=== PATIENT | male | born 1950 | race Caucasian/White ===

== ENCOUNTER → 2020-12-11 | Outpatient (CLI) | payer MEDICARE ==
[~2020-12-11] MED LIST: IOHEXOL 350 MG/ML 100 ML VIAL. IV ONE
--- NOTE | 2020-12-11 16:16 | RAD ---
CT angiography of the abdomen and pelvis 12/11/2020 INDICATION: Peripheral vascular disease. COMPARISON STUDY: None available. TECHNIQUE: Multidetector CT imaging of the abdomen pelvis was performed before and after the administ ration of IV contrast FINDINGS: Limited visualization of the lung bases demonstrates no acute abnormality. No elevation of the left h emidiaphragm is noted. Visualized thoracic aorta is unremarkable in course and contour. There is diffuse atherosclerotic vas cular disease involving the abdominal aorta. No aneurysm or dissection is seen. There is a 50% stenosis of the right renal artery. 20% narrowing of the left renal artery. Celiac art geoff is patent. There is 50% narrowing of the proximal SMA. The inferior most abdominal aorta is nearl y circumferentially calcified. The visualized inferior mesenteric artery appears be patent There is chronic total occlusion of the left common iliac artery just beyond its origin. There is rec onstitution via pelvic collaterals. There is high-grade stenosis left internal iliac artery. The left external iliac artery is small in caliber and calcified but remains patent. Common femoral artery on the left is partially calcified and mildly narrowed. There is moderate stenosis at the ostium of the right common iliac artery secondary to intraluminal c alcified plaque. Artery is narrowed by approximately 50%. The right internal iliac artery is mildly s tenotic at its origin, and pelvis calcified and stenotic distally. The right external iliac artery is calcified and small but patent. Right common femoral artery is calcified but patent. Solid viscera of the abdomen demonstrate no acute abnormality. Motion somewhat limits evaluation. No evidence of bowel obstruction is seen. The appendix is unremarkable. The gallbladder wall is mildly t hickened. Prostate is normal in size. No free fluid or free air seen in the abdomen or pelvis. No acu te osseous changes are identified. IMPRESSION: 1.. 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 50% narrowing, right common iliac artery at t he ostium. Consider conventional angiography/intervention as clinically indicated. 2. 50% stenosis, right renal artery. 50% stenosis, SMA. 3. Bilateral internal iliac artery stenosis also noted. 4. Nonspecific bladder wall thickening or air correlate with clinical evidence of cystitis CT DOSING PQRS STATEMENT: One or more of the following individualized dose reduction techniques were utilized for this examinat ion: 1. Automated exposure control 2. Adjustment of the mA and/or kV according to patient size 3. Use of iterative reconstruction technique Electronically signed by: Del Barry MD (12/11/2020 4:13 PM) [id number]
== END ==
LOC: CT 13:47
PROVIDERS: ATTEND Family Medicine
DX: I74.5 Embolism and thrombosis of iliac artery (principal)
CPT/HCPCS: 74174

== ENCOUNTER 2020-12-21 08:37 | Outpatient (CLI) | payer MEDICARE ==
[~2020-12-21] VITALS: Ht 185.4 cm; Wt 89.5 kg
[2020-12-21] VITALS (14 sets, daily range): BP systolic 120–161; BP diastolic 60–76
[2020-12-21] MEDS ORDERED: NAPR220C4 PO (09:09)
[2020-12-21] MEDS ORDERED: MV-M1TAB7 PO (09:09)
[2020-12-21] MEDS ORDERED: FLUT1BLS3 IH (09:09)
[2020-12-21] MEDS ORDERED: VENTOLIN HFA18 GM INH (09:09)
[2020-12-21] MEDS ORDERED: OLME20TA17 PO (09:09)
[2020-12-21] MEDS ORDERED: VITA1TAB19 PO (09:09)
[2020-12-21 09:36] LABS: BASO # 0.1 x10^3/uL (0.0-0.2); BASO % 1 % (0-3); EOS # 0.1 x10^3/uL (0.0-0.7); EOS % 2 % (0-3); HEMATOCRIT 50.3 % (39.0-53.0); HEMOGLOBIN 17.4 g/dL (13.0-17.5); LYMPH # 1.6 x10^3/uL (1.0-4.8); LYMPH % 23 % (24-48); MEAN CORPUSCULAR HEMOGLOBIN 37 pg (25-35); MEAN CORPUSCULAR HGB CONC 35 g/dL (31-37); MEAN CORPUSCULAR VOLUME 106 fL (79-100); MONO % 13 % (0-9); NEUT # 4.5 x10^3/uL (1.8-7.7); NEUT % 61 % (31-73); PLATELET COUNT 171 x10^3/uL (140-400); RED BLOOD COUNT 4.74 x10^6/uL (4.30-5.70); RED CELL DISTRIBUTION WIDTH 13.7 % (11.5-14.5); WHITE BLOOD COUNT 7.3 x10^3/uL (4.0-11.0)
[2020-12-21] MEDS ORDERED: LIDOCAINE WITH 8.4% SOD BICARB 3 ML DISP.SYRIN. ONE ×2 (09:44→10:31)
[2020-12-21] MEDS ORDERED: IODIXANOL 320 MG/ML 100 ML VIAL. ONE (09:44)
[2020-12-21 09:45] LABS: PROTHROMBIN TIME PATIENT 12.4 SEC (11.7-14.0)
[2020-12-21 09:59] LABS: CALCIUM 8.6 mg/dL (8.5-10.1); GFR 74.1
[2020-12-21] MEDS ORDERED: MIDAZOLAM HCL/PF 2 MG/2 ML VIAL. ONE ×2 (10:18→10:54)
[2020-12-21] MEDS ORDERED: fentaNYL PF VIAL 100 MCG/2 ML VIAL ONE ×3 (10:19→12:59)
[2020-12-21] MEDS: fentaNYL PF VIAL 100 MCG/2 ML VIAL IV ONE (10:29)
[2020-12-21] MEDS ORDERED: HEPARIN for IV BOLUS 10,000 UNIT/10 ML VIAL. ONE (10:33)
[2020-12-21] MEDS ORDERED: MIDAZOLAM HCL/PF 2 MG/2 ML VIAL. IV ONE (10:45)
[2020-12-21] MEDS ORDERED: LIDOCAINE WITH 8.4% SOD BICARB 3 ML DISP.SYRIN. IJ ONE (10:45)
[2020-12-21] MEDS ORDERED: HEPARIN for IV BOLUS 10,000 UNIT/10 ML VIAL. IVP ONE (10:45)
[2020-12-21] MEDS ORDERED: IODIXANOL 320 MG/ML 100 ML VIAL. IART ONE (10:45)
[2020-12-21] MEDS ORDERED: IODIXANOL 320 MG/ML 50ML VIAL. ONE (12:32)
[2020-12-21] MEDS ORDERED: IODIXANOL 320 MG/ML 50ML VIAL. IART ONE (13:00)
--- NOTE | 2020-12-21 13:23 | PDOC ---
MODERATE SEDATION ASSESSMENT RISKS/ALTERNATIVES Risks/Alternatives Risks and alternatives of this type of sedation and procedure discussed with: RISK/ALTERNATIVES: Patient H & P ON CHART H & P H & P on chart and reviewed for co-morbid conditions and appropriate labs. H&P ON CHART: Yes STATUS PREG STATUS ASSESSED: Yes MEDS/ALLERGIES REVIEWED Meds/Allergies Reviewed Medications and Allergies including time and route of recently administered narcotics and sedatives. MEDS/ALLERGIES REVIEWED: Yes ASA RATING ASA RATING: II AIRWAY ASSESSMENT Airway Assessment Airway patency, oral function limitations, presence of caps, crowns, dentures, partials, and ability to extend neck assessed. AIRWAY ASSESSMENT: Yes MALLAMPATI SCORE MALLAMPATI SCORE: II PRE-SEDATION ASSESSMENT PRE-SEDATION ASSESSMENT: Yes JANENE VALENZUELA MD December 21, 2020 13:23
--- NOTE | 2020-12-21 13:25 | PDOC ---
BRIEF OPERATIVE NOTE Pre-Op Diagnosis PAD Post-Op Diagnosis same Procedure Performed Aortogram and bilateral iliac artery angioplasty/stent Surgeon Edwin CAMILO minimal Anesthesia Type: Conscious Sedation Specimens Obtained none Findings Occluded left zaheer, severe right zaheer stenosis both treated with covered stents with good result. Moderate to severe bilateral eia disease treated with angioplasty with good results. Recommend bilateral LE arterial duplex us study with ANU's in 6 weeks, with LE runoffs and intervention if indicated. Complications no immediate JANENE VALENZUELA MD December 21, 2020 13:25
[2020-12-21] MEDS ORDERED: ASPI-630 PO (13:30)
[2020-12-21] MEDS ORDERED: CLOP75TA PO (13:30)
[2020-12-21] MEDS ORDERED: CLOPIDOGREL BISULFATE 75 MG TABLET PO ONE (14:00)
--- NOTE | 2020-12-21 15:37 | RAD ---
Procedure: Abdominal aortogram, left common iliac artery angioplasty, bilateral common iliac artery s tents, bilateral external iliac artery angioplasty. Clinical Indication: Adult male with peripheral arterial disease, right lower extremity great toe isc hemia, bilateral claudication, 1 pack per day smoking history. Sedation: Conscious sedation using a combination of Versed and fentanyl was provided for 166 minutes, including continuous monitoring of the patients heart rate, rhythm, blood pressure, oxygen saturation and leve l of arousability by a trained independent observer. Antibiotics: None Fluoro Exposure: Kerma-Area Product: 467 mGycm2 Contrast: 114 cc of Visipaque 320 contrast media Sterility: All elements of maximal sterile barrier technique including the use of a cap, mask, steril e gown, sterile gloves, large sterile sheet, appropriate hand hygiene, and 2% chlorhexidine for cutan eous antisepsis (or acceptable alternative antiseptic per current guidelines) were followed for this procedure. Consent: The procedure was explained in its entirety to the patient or the patients designated repres entative by a member of the treatment team, including a discussion of the risks, benefits and commonl y accepted alternatives to the procedure, as well as the expected consequences of not performing the procedure. Discussion of the risks included, but was not limited to, those that are most frequent an d those that are rare but possibly severe or life-threatening, as well as the possibility of unforese en complications. Time Out: Immediately prior to initiation a procedural pause was conducted in the presence of the mem bers of the treatment team to verify correct patient identity, correct procedure, correct side if mike licable, correct patient position, availability of specialized equipment, review of patients allergie s, and assessment of current level of consciousness and arousability. Technique and Findings: Following informed consent, the patient was prepped and draped in usual steri le fashion. Ultrasound interrogation of the right groin revealed patency of the right common femoral artery. A hardcopy ultrasound image was recorded as a 21-gauge micropuncture needle was used to gain access to this vessel. The needle was exchanged over a wire for a 5 [place] sheath. A flush catheter w as advanced into the abdominal aorta and contrast aortography is performed. There is moderate atheros clerosis of the right renal artery proximally, with slightly greater than 50 percent stenosis. Mild a therosclerosis of left renal artery. Superior mesenteric and inferior mesenteric arteries are patent. There are several hypertrophied lumbar arteries. There is occlusion of the left common iliac artery, with high-grade irregular stenosis of the right common iliac artery. Several well-developed collater als reconstitute the left common iliac artery just above its bifurcation, via the internal iliac corrine ry. There is also long segment irregular stenosis of both external iliac arteries. The patient was gi glenn 5000 units of heparin. The 5 [place] African sheath was exchanged for 7 [place] African sheath which was advanced i n the aorta, and a reverse curve catheter and wire were used to probe the contralateral left common i liac artery occlusion. Access across the occlusion could not be achieved. Consequently, the left groi n was prepped and draped in usual sterile fashion. Ultrasound interrogation revealed patency of the l eft common femoral artery. A hardcopy ultrasound image was recorded as a 21-gauge micropuncture needl e was used to gain access to the left common femoral artery. The needle was exchanged over a wire for a 6 [place] African sheath. A catheter and wire were then used to probe the left common iliac artery occlusio n in a retrograde fashion, but once again access across the occlusion could not be achieved. The cath eter and wire were then exchanged for*device which was positioned within the subintimal space midway through the occlusion. On the right, a Glidewire was used to negotiate the subintimal space, and was successfully retrieved and pulled through the sheath on the left, facilitating through and through ac cess. The catheter was advanced over the wire on the left, and the wire was pulled through the cathet er such that the intravascular portion of the wire extended in the aorta. The catheter was then advan belkis over this portion of the wire into the aorta, and the wire was removed in its entirety. Contrast angiography was performed confirming catheter access into the abdominal aorta with persistent patency of the diseased right common iliac artery. At this point the patient was given an additional 3000 an d heparin. The catheter on the left was removed over a Camejo wire, and the left 6 [place] African sheath was e xchanged for 7 [place] African sheath. On the right a Camejo wire was advanced through the existing 7 [place] African sh eath into the abdominal aorta. A 4 mm x 60 mm angioplasty balloon was then advanced over the wire on the left and used to predilate the left common iliac artery. This balloon was then removed and kissin g 7 mm x 59 mm VBX balloon expandable covered stents were then deployed across both common iliac corrine chelsea. The balloons were inflated to maximal profile 7.5 mm. This resulted in some discomfort for the patient. Both balloons were then removed, and an 8 mm x 60 mm balloon was advanced on the right into the common iliac artery. This balloon ruptured at just greater than nominal profile, and was removed. A second 8mm by 60 mm angioplasty balloon was advanced over the wire on the left and used to angiopl asty the left common iliac artery. This resulted in some continued discomfort for the patient which p recluded inflation to burst diameter. This balloon was then removed and contrast angiography was perf ormed demonstrating excellent angiographic appearance of both common iliac arteries with christianity of brisk flow. On the right there is minimal residual stenosis. On the left, there is a tapered waist of approximately 20 percent stenosis due to extrinsic compression from the densely calcified nature of the occlusion. There is extensive left external iliac artery atherosclerosis diffusely, as well as focal hemodynamically significant atherosclerosis the right external iliac artery. A 6 mm x [address] ug coated balloon was then used to angioplasty the left external iliac artery to 3 minutes. The ballo on was repositioned and an additional 3 minute inflation was performed in the same vessel. This ballo on was then removed and a 7 mm x 60 mm plain old balloon angioplasty was performed in the left rigging and controls aircraft mechanic al iliac artery distribution. Completion angiogram demonstrated excellent angiographic appearance wit h no significant residual stenosis throughout this distribution. On the right, an 8 mm x 60 mm plain old balloon angioplasty was performed across the focal right external iliac artery stenosis. The ball oon was removed and contrast angiography was performed demonstrating good angiographic appearance wit h no significant residual stenosis. Both sheaths were then exchanged for a minx closure devices which were successfully utilized to obtain hemostasis. Complications: No immediate Impression: 1. Long segment occlusion of the left common iliac artery, with focal high-grade calcified stenosis o f the right common iliac artery. These are both significantly improved following treatment with cover ed stents. There is mild residual stenosis of the left common iliac artery due to the densely calcifi ed nature of the atherosclerosis resulting in extrinsic compression of the stents, however this is ro ughly 20 percent. 2. Long segment multifocal atherosclerosis of the left external iliac artery improved following drug coated and plain old balloon angioplasty. 3. Focal irregular stenosis of the right external iliac artery improved following plain old balloon a ngioplasty. 4. Significant stenosis the right renal artery. This will be observed in conjunction with the patient 's renal function. 5. Recommendation is for dual antiplatelet therapy with aspirin and Plavix for 6 weeks followed by tania brayin for life thereafter. The patient was counseled as to the importance of smoking cessation and is referred to Dr. Dockery for additional options in that regard. Given the dual antiplatelet therapy, th e patient was also encouraged to discontinue use of naproxen. A six-week follow-up bilateral lower ex tremity arterial duplex ultrasound study with ABIs will be obtained, and is quite possible this deter mine has clinically significant bilateral lower extremity atherosclerosis as well which may need to b e treated, with emphasis on the right lower extremity given its greater degree of symptomatology. Electronically signed by: Sukhi Pineda MD (12/21/2020 3:35 PM) [id number]
--- NOTE | 2020-12-21 17:05 | NUR ---
Patient's PIV removed. Sister is present for education/instructions. Instructions provided on groin site care, sedation. Aware of risk of bleeding. Aware of lifting restrictions. Patient verbalized understanding. Aware of new prescription and ASA. Sites clean, no bleeding. VS stable. All belongings w/ patient at time of d/c. Sister driving home.
--- NOTE | 2020-12-21 17:21 | NUR ---
Patient given written prescription for Plavix 75 mg daily. States he will fill at [facility] [address].
== END 2020-12-21 17:15 | disposition home or self-care (01) ==
LOC: INTRAD 08:37
PROVIDERS: ATTEND Family Medicine
DX: I77.1 Stricture of artery (principal); I73.9 Peripheral vascular disease, unspecified; I70.1 Atherosclerosis of renal artery; J44.9 Chronic obstructive pulmonary disease, unspecified; F17.210 Nicotine dependence, cigarettes, uncomplicated; Z20.822 Contact with and (suspected) exposure to COVID-19; Z79.82 Long term (current) use of aspirin; Z79.899 Other long term (current) drug therapy; Z98.890 Other specified postprocedural states
CPT/HCPCS: 36415; 37221; 37223; 75625; 75710; 76937; 80048; 85025; 85610; 87426; 99152; 99153; C1713; C1725; C1760; C1769; C1874; C1892; C1894; C2623; J1644; J2250; J3010; J3490; Q9967

== ENCOUNTER → 2021-02-05 | Outpatient (CLI) | payer MEDICARE ==
[2020-12-21 17:00] VITALS: BP 161/69
[~2021-02-05] MED LIST changes: +ASPI-630 PO; +CLOP75TA PO; +FLUT1BLS3 IH; -IOHEXOL 350 MG/ML 100 ML VIAL. IV ONE; +MV-M1TAB7 PO; +NAPR220C4 PO; +OLME20TA17 PO; +VENTOLIN HFA18 GM INH; +VITA1TAB19 PO
--- NOTE | 2021-02-05 16:02 | RAD ---
EXAM: Lower extremity arterial Doppler sonogram with ankle-brachial indices (ANU). HISTORY: Peripheral vascular disease. Claudication. Atherosclerosis. TECHNIQUE: Doppler sonographic evaluation of the lower extremities was performed and pressure reading s were assessed. FINDINGS: Right brachial pressure: 139 mmHg Left brachial pressure: 135 mmHg Right ankle pressure (dorsalis pedis): 86 mmHg Right ankle pressure (posterior tibial): Not detected. Right ANU: 0.61 Left ankle pressure (dorsalis pedis): 135 mmHg Left ankle pressure (posterior tibial): 142 mmHg Left ANU: 1.02 There is severe partially calcified atherosclerotic plaque throughout the bilateral lower extremity a rteries with associated small collateral vessels. There are not elevated peak systolic velocities wit hin the right common femoral, deep femoral and distal superficial femoral artery, measuring 209 cm/s, 230 cm/s, and 264 cm/s. There are also elevated peak systolic velocities within the left deep femora l and proximal, mid and distal superficial femoral artery, measuring 163 cm/s, 178 cm/s, 183 cm/s, an d 176 cm/s. The right dorsalis pedis artery is not seen. There is diminished flow within the left eula salis fetus artery and right anterior tibial artery. IMPRESSION: 1. Nonvisualization of the right posterior tibial artery at the ankle. This vessel may be occluded. T he right dorsalis pedis artery is also not seen and there is a diminished waveform within the right a nterior tibial artery. 2. Elevated peak systolic velocities within the bilateral deep femoral, right common femoral, distal right superficial femoral and proximal, mid and distal left superficial femoral artery, consistent wi th hemodynamically significant stenosis. 3. Decreased right ankle-brachial index consistent with moderate peripheral vascular disease. There i s normal left ankle-brachial index. 4. Severe partially calcified atherosclerotic plaque throughout the lower extremity arteries. Electronically signed by: Staci Beavers MD (02/05/2021 3:59 PM) [id number]
== END ==
LOC: US 14:11
PROVIDERS: ATTEND Radiology Diagnostic Radiology
DX: I70.203 Unspecified atherosclerosis of native arteries of extremities, bilateral legs (principal)
CPT/HCPCS: 93922; 93925

== ENCOUNTER → 2021-02-20 | Outpatient (CLI) | payer MEDICARE ==
[2021-02-20] VITALS (14 sets, daily range): BP systolic 101–166; BP diastolic 48–75
[~2021-02-20] VITALS: Ht 185.4 cm; Wt 87.0 kg
[~2021-02-20] MED LIST changes: +CLOPIDOGREL BISULFATE 75 MG TABLET ONE; +CLOPIDOGREL BISULFATE 75 MG TABLET PO ONE; +CONTRAST GIVEN. MC PRN; +HEPARIN for ARTERIAL LINE 1,500 ML ONE; +HEPARIN for IV BOLUS 10,000 UNIT/10 ML VIAL. IV ONE; +HEPARIN for IV BOLUS 10,000 UNIT/10 ML VIAL. ONE; +IODIXANOL 320 MG/ML 100 ML VIAL. IART ONE; +IODIXANOL 320 MG/ML 100 ML VIAL. ONE; +LIDOCAINE 1% Multi-Dose 20 ML VIAL. ONE; +LIDOCAINE WITH 8.4% SOD BICARB 3 ML DISP.SYRIN. IJ ONE; +LIDOCAINE WITH 8.4% SOD BICARB 3 ML DISP.SYRIN. ONE; +MIDAZOLAM HCL/PF 2 MG/2 ML VIAL. IV ONE; +MIDAZOLAM HCL/PF 2 MG/2 ML VIAL. ONE; +fentaNYL PF VIAL 100 MCG/2 ML VIAL IV ONE; +fentaNYL PF VIAL 100 MCG/2 ML VIAL ONE
--- NOTE | 2021-02-20 11:14 | PDOC ---
MODERATE SEDATION ASSESSMENT RISKS/ALTERNATIVES Risks/Alternatives Risks and alternatives of this type of sedation and procedure discussed with: RISK/ALTERNATIVES: Patient H & P ON CHART H & P H & P on chart and reviewed for co-morbid conditions and appropriate labs. H&P ON CHART: Yes STATUS PREG STATUS ASSESSED: Yes MEDS/ALLERGIES REVIEWED Meds/Allergies Reviewed Medications and Allergies including time and route of recently administered narcotics and sedatives. MEDS/ALLERGIES REVIEWED: Yes ASA RATING ASA RATING: II AIRWAY ASSESSMENT Airway Assessment Airway patency, oral function limitations, presence of caps, crowns, dentures, partials, and ability to extend neck assessed. AIRWAY ASSESSMENT: Yes MALLAMPATI SCORE MALLAMPATI SCORE: II PRE-SEDATION ASSESSMENT PRE-SEDATION ASSESSMENT: Yes TALA COTA MD Feb 20, 2021 11:14
--- NOTE | 2021-02-20 11:17 | PDOC ---
Exam Client Account Assistant Client Account Assistant Jhonny Pre-Procedure Diagnosis Pre-Procedure Diagnosis RLE pain/claudication. Severe PVD HX iliac stents B Post-Procedure Diagnosis Post-Procedure Diagnosis Near occlusion mid to distal r SFA Tibial Dz Procedure Performed Procedure Performed RLE angio RSFA stent placement. LLE runoff Type of Anesthesia Type of Anesthesia Mod Sed Estimated Blood Loss EBL: 15 Specimens Specimans None Drain/Tubes Drains/Tubes None Condition of Patient Condition of Patient Stable Manual Hold Disposition Disposition To [facility] for monitoring Expect DC TALA COTA MD Feb 20, 2021 11:17
--- NOTE | 2021-02-20 12:22 | RAD ---
02/20/2021 1. Right lower extremity angiography 2. Placement of self-expanding stent, for high-grade stenosis of the mid right SFA. 3. Left lower extremity angiography INDICATION: Persistent right-sided claudication. Known severe peripheral vascular disease with histor y of left chronic iliac chronic total occlusion status post bilateral common iliac artery stent place ment by Dr. Pineda December 21, 2020 Consent: The procedure was explained in its entirety to the patient or the patients designated repres entative by a member of the treatment team, including a discussion of the risks, benefits and commonl y accepted alternatives to the procedure, as well as the expected consequences of no therapy whatsoev er. Discussion of the risks included, but was not limited to, those that are most frequent and thos e that are rare but possibly severe or life-threatening, as well as the possibility of unforeseen com plications. The patient was brought to the fluoroscopy suite and placed in a supine position. A timeout procedure was performed. The left groin was prepped and draped using sterile barrier technique. 1% lidocaine w as administered for local anesthesia. Ultrasound evaluation demonstrates a left common femoral artery to be patent. The artery was accessed using direct ultrasound guidance and micropuncture technique. Reference ultrasound images were saved in the medical record. A 5 [place]orean vascular sheath was placed. The catheter was used to cross the aortic bifurcation and posi tioned in the external iliac artery. Angiography was performed demonstrating a patent right common fe moral artery. The catheter was then repositioned in the proximal right superficial femoral artery. An giography was continued demonstrating patent proximal SFA. There is a high-grade stenosis/near occlus ion of the mid SFA. The distal SFA is patent. The right popliteal artery is patent.. The right anterior tibial artery is occluded approximately 30 cm beyond its origin. The posterior tibial artery is patent and is the dominant blood supply to the f oot supplying the lateral plantar artery. The peroneal artery is small but patent. Dorsalis pedis is nonvisualized. The high-grade stenosis/near occlusion of the SFA was treated by placement of a 6 mm x 100 mm self-ex panding stent postdilated to 6 mm. This significantly improved morphology and flow through this segme nt. The pre-existing left common femoral sheath was exchanged for a short sheath. Left lower extremity an giography was then performed. This demonstrates a patent left common femoral artery. The puncture sit e is in the mid common femoral artery. The profunda artery on the left is patent. The left SFA demons trates atherosclerotic plaquing and moderate distal stenosis. The popliteal artery is patent. The ant erior tibial artery appears to be occluded proximally on the left. Tibial peroneal trunk is patent. T he peroneal artery is the dominant blood supply to the foot on the left with a collateral supplying t he lateral plantar artery. The posterior tibial artery is small but patent but tapers significantly d istally. IMPRESSION: 1. High-grade stenosis/near occlusion of the right SFA treated with 6 mm of expanding stent placement 2. The posterior tibial artery is the dominant blood supply on the right with a patent peroneal arter y. The anterior tibial artery and dorsalis pedis artery on the right appear to be occluded. 3. Moderate stenosis of the distal SFA on the left. If the patient remains symptomatic, treatment to be considered. 4. Peroneal artery is the dominant blood supply the left foot. The posterior tibial artery is small b ut patent. The anterior tibial artery is occluded on the left. Electronically signed by: Del Barry MD (02/20/2021 12:20 PM) [id number]
--- NOTE | 2021-02-20 14:47 | NUR ---
Pt ambulated and tolerated PO. PIV bruna'd. Sister at bedside for discharge instructions
== END | disposition home or self-care (01) ==
LOC: INTRAD 08:31
PROVIDERS: ATTEND Surgery
DX: I73.9 Peripheral vascular disease, unspecified (principal); J44.9 Chronic obstructive pulmonary disease, unspecified; F17.210 Nicotine dependence, cigarettes, uncomplicated; Z79.899 Other long term (current) drug therapy; Z98.890 Other specified postprocedural states; Z79.82 Long term (current) use of aspirin
CPT/HCPCS: 37226; 75716; 76937; 99152; 99153; C1725; C1769; C1876; C1892; C1894; J1644; J2250; J3010; J3490; Q9967